=== PATIENT | male | born 1965 | race American Indian/Alaskan Native ===

== ENCOUNTER 2017-10-09 22:23 | Emergency (ER) | payer MEDICAID ==
[2017-10-09] MEDS ORDERED: Ketorolac 30 MG/ML SDV IM ONE (22:43)
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
== END 2017-10-09 23:39 | disposition home or self-care (01) ==
LOC: DL.ED 22:23
DX: T33.72XA Superficial frostbite of left knee and lower leg, initial encounter (principal); T33.71XA Superficial frostbite of right knee and lower leg, initial encounter; F17.210 Nicotine dependence, cigarettes, uncomplicated; X31.XXXA Exposure to excessive natural cold, initial encounter
CPT/HCPCS: 96372; 99282; J1885